=== PATIENT | male | born 1955 | race Caucasian/White ===

== ENCOUNTER 2022-09-28 10:13 | Day surgery (SDC) | payer OTHER, SELFPAY ==
--- NOTE | 2022-09-28 06:53 | W.PREOPHP ---
Assessment and Plan Assessment and plan (1) Nuclear sclerotic cataract of left eye: Status: Acute Assessment and plan: Assessment: Visually significant cataract of the left eye. Plan: Cataract extraction with lens implantation of the left eye. (2) Cortical cataract of left eye: Status: Acute Assessment and plan: Assessment: Visually significant cataract of the left eye. Plan: Cataract extraction with lens implantation of the left eye. History of Present Illness History of Present Illness Chief Complaint: Progressive decreased vision, left eye Narrative: The patient is a 67-year-old male with history of progressive decreased vision at both distance and near, left eye worse than right. He notes occasional monocular diplopia in the left eye. On examination he was noted to have visual acuity of 20/40 in the left eye in the presence of moderate nuclear and cortical cataract. He also has significant glare disability. The option of cataract surgery was offered to the patient and he wished to proceed. Review of Systems All systems reviewed & are unremarkable except as noted in HPI and below ENT Comments: Chronic sinusitis PFSH All Active Problems Nuclear sclerotic cataract of left eye (Acute) Cortical cataract of left eye (Acute) Medical History BPH (benign prostatic hyperplasia) Carpal tunnel syndrome Cervical radiculopathy Chronic sinusitis pt. states he has this for 6months + Depression Essential hypertension Hemorrhoids Hypothyroidism Overweight Pain in right knee Tinnitus Ventricular premature complex Pt. unaware of this, no hx per pt Surgical History (Updated 09/28/22 @ 10:56 by Marika Bowden) History of carpal tunnel release Hx of colonoscopy Hx of sinus surgery Social History Smoking/Tobacco Use Status: Former Tobacco Use Quit Date: 06/09/79 Smoking risk assessment performed?: Yes Alcohol Intake: former Drug use: Never Substance use type: does not use Do you feel safe at home: Yes Do you feel safe in your relationship?: Yes Meds Allergies and Home Medications Allergies Allergy/AdvReac Type Severity Reaction Status Date / Time No Known Allergies Allergy Unverified 09/28/22 10:49 Home Medications Medication Instructions Recorded Confirmed Type budesonide 0.5 mg/2 mL suspension 0.5 mg inhalation DIRECTED 09/24/22 09/28/22 History for nebulization finasteride 5 mg tablet 5 mg PO DAILY 09/24/22 09/28/22 History ibuprofen 800 mg tablet 800 mg PO BID PRN 09/24/22 09/28/22 History levothyroxine 125 mcg tablet 125 mcg PO DAILY 09/24/22 09/28/22 History lovastatin 40 mg tablet 40 mg PO DAILY 09/24/22 09/28/22 History mupirocin calcium 2 % topical cream 1 applic topical DIRECTED 09/24/22 09/28/22 History propranolol 120 mg capsule,24 240 mg PO BID 09/24/22 09/28/22 History hr,extended release sodium bicarbonate-sodium chloride 1 packet 09/24/22 History packet for sinus irrigation (Sinus Rinse packet) tamsulosin 0.4 mg capsule 0.8 mg PO HS 09/24/22 09/28/22 History venlafaxine 75 mg capsule,extended 150 mg PO DAILY 09/24/22 09/28/22 History release 24 hr verapamil 180 mg tablet,extended 180 mg PO DAILY 09/25/22 09/28/22 History release 24 hr Exam Eyes Other: Most recent ocular examination revealed corrected visual acuity of 20/25 OD, 20/40 OS. Extraocular motility is normal. Intraocular pressure is 11 OU. Slit-lamp examination reveals pupils dilating only to 4 mm OU. In the right eye there is a mild nuclear cataract. The left eye shows moderate nuclear and moderate cortical cataract. Disc cupping is 0.35 OU. The remainder of the fundus, vessels, macula, and peripheral retina and vitreous is normal. Resp Auscultation: clear to auscultation bilaterally Cardio Rate: regular rate Rhythm: regular rhythm
--- NOTE | 2022-09-28 10:57 | W.ANESPRE ---
General Info Date of Service Date Performed: 09/28/22 Height: 5 ft 6 in Weight: 79.832 kg Body Mass Index (BMI): 28.4 Surgical Procedure: Operation Date: 09/28/22 13:40 Proposed Procedure Side Surgeon p Cataract Extraction with IOL Implant Left Milan Delgadillo MD Meds Allergies and Home Medications Allergies Allergy/AdvReac Type Severity Reaction Status Date / Time No Known Allergies Allergy Unverified 09/28/22 10:49 Home Medication Medication Instructions Recorded budesonide 0.5 mg/2 mL suspension 0.5 mg inhalation DIRECTED 09/24/22 for nebulization finasteride 5 mg tablet 5 mg PO DAILY 09/24/22 ibuprofen 800 mg tablet 800 mg PO BID PRN 09/24/22 levothyroxine 125 mcg tablet 125 mcg PO DAILY 09/24/22 lovastatin 40 mg tablet 40 mg PO DAILY 09/24/22 mupirocin calcium 2 % topical cream 1 applic topical DIRECTED 09/24/22 propranolol 120 mg capsule,24 240 mg PO BID 09/24/22 hr,extended release sodium bicarbonate-sodium chloride 1 packet 09/24/22 packet for sinus irrigation (Sinus Rinse packet) tamsulosin 0.4 mg capsule 0.8 mg PO HS 09/24/22 venlafaxine 75 mg capsule,extended 150 mg PO DAILY 09/24/22 release 24 hr verapamil 180 mg tablet,extended 180 mg PO DAILY 09/25/22 release 24 hr Current Visit Medications: Current Medications Generic Name Dose Route Start Last Admin Trade Name Freq PRN Reason Stop Dose Admin Acetaminophen 1,000 mg 09/28/22 06:00 Acetaminophen 500 Mg Tab PO Q4H PRN PRN Miscellaneous Medication 0 ml 09/28/22 06:00 Tropicam./Phenyleph. (1/2.5%) 5 Ml Btl OS DIRECTED JULIAN Miscellaneous Medication 0 ml 09/28/22 06:00 Prednisolone 1%, Moxifloxacin 0.5%, Nepafenac 0.1% 5ml Btl OS DIRECTED JULIAN Tetracaine HCl 0 ml 09/28/22 06:00 Tetracaine 0.5% 4 Ml Btl OS DIRECTED [facility] PFSH Active Problems Active Problems: Problem Status Onset Code Nuclear sclerotic cataract of left eye H25.12 Cortical cataract of left eye H26.9 Medical History Medical History BPH (benign prostatic hyperplasia) Carpal tunnel syndrome Cervical radiculopathy Chronic sinusitis pt. states he has this for 6months + Depression Essential hypertension Hemorrhoids Hypothyroidism Overweight Pain in right knee Tinnitus Ventricular premature complex Pt. unaware of this, no hx per pt Surgical History Surgical History (Updated 09/28/22 @ 10:56 by Marika Bowden) History of carpal tunnel release Hx of colonoscopy Hx of sinus surgery Tobacco Smoking/Tobacco Use Status: Former Tobacco Use Alcohol Alcohol Intake: former Substance Use Substance use: Never Substance use type: does not use Vital Signs and Lab Results Vital Signs Most Recent Vital Signs in EMR: Temp Pulse Resp BP Pulse Ox 36.6 C 68 16 135/89 97 09/28/22 10:58 09/28/22 10:58 09/28/22 10:58 09/28/22 10:58 09/28/22 10:58 Lab Results Blood Type / Crossmatch: No Data to Display Complete Blood Count: No Data to Display Complete Metabolic Panel: No Data to Display Liver Function Panel: No Data to Display Coagulation Panel: No Data to Display Cardiac Panel: No Data to Display Arterial Blood Gas: No Data to Display Venous Blood Gas: No Data to Display Pancreas Panel: No Data to Display Thyroid Panel: No Data to Display Infectious Disease: No Data to Display Blood Cultures: No Data to Display Toxicology Panel: No Data to Display Anesthesia Assessment and Plan Anesthesia History Personal History: No History of Anesthesia Complications Family History: No Family History of Anesthesia Complications Exercise Tolerance Exercise Tolerance: Metabolic Equivalents>4 Cardiac & Pulmonary Exam Cardiac Exam: Normal S1/S2 Heart Sounds Pulmonary Exam: Clear Bilateral Breath Sounds Implantable Cardiac Device Does patient have a Pacemaker or an ICD?: No Airway Exam Known Difficult Airway: No Mallampati Class: 4 Mouth Opening: Narrow (< 3cm) Thyromental Distance: Greater than 3 cm Neck Range of Motion: Full ROM Neck Circumference: Normal Teeth Condition: Normal Dentition ASA Classification ASA Score: ASA 2 Emergency Case?: No NPO Status NPO Status: NPO Clears >2 hours, Solids >8 hours Anesthesia Plan Resuscitation Status: Full Code Anesthesia Technique: MAC Anesthesia Airway Planned: Natural Airway Monitors Used: Standard Monitors Preoperative Comments:: 67 yo male for cataract removal. Sig PMHx: HTN (verapamil, propranolol), cervical radiculopathy, hypothyroid (stable on hypothyroid), PVC, depression (venlafaxine), former smoker. Plan: would like MKO.
[2022-09-28 10:58] VITALS: BP 135/89; PULSE 68; RESP 16; TEMP 36.6; O2SAT 97
[2022-09-28 11:19] VITALS: BMI 28.4
[2022-09-28] MEDS: Tropicam./Phenyleph. (1/2.5%) 5 ML BTL OS ×3 (11:24→11:34)
[2022-09-28] MEDS: Tetracaine 0.5% 4 ML BTL OS (12:15)
[2022-09-28] MEDS: Balanced Salt Soln.-PLUS 500 ML BAG (12:16)
[2022-09-28] MEDS: Lidocaine 1% Pres-Free 5 ML VIAL (12:16)
[2022-09-28] MEDS: Lidocaine 2% Jelly 6 ML SYR (12:17)
[2022-09-28] MEDS: Duovisc Viscoelastic System EACH 1 EACH (12:18)
[2022-09-28] MEDS: Povidone-Iodine Ophth 30 ML BTL (12:18)
[2022-09-28 12:30] VITALS: BP 128/83; PULSE 74; RESP 16; TEMP 36.6; O2SAT 94
--- NOTE | 2022-09-28 12:31 | PDOC.DSDIS_ITS ---
Date of service: 09/28/22 Time of Service: 12:32 Discharge Plan Disposition Patient Disposition: Home Discharge Details Attending Provider: Milan Delgadillo Primary Care Provider: Danny Tucker [place] Meds and New Rx's Prescriptions: No Action venlafaxine 75 mg Capsule,Extended Release 24hr 150 mg PO DAILY ibuprofen 800 mg Tablet 800 mg PO BID PRN lovastatin 40 mg Tablet 40 mg PO DAILY tamsulosin 0.4 mg Capsule 0.8 mg PO HS levothyroxine 125 mcg Tablet 125 mcg PO DAILY mupirocin calcium 2 % Cream 1 applic TOPICAL DIRECTED budesonide 0.5 mg/2 mL Suspension For Nebulization 0.5 mg inhalation DIRECTED propranolol 120 mg Capsule,Extended Release 24 Hr 240 mg PO BID finasteride 5 mg Tablet 5 mg PO DAILY Sinus Rinse Packet 1 packet verapamil 180 mg Tablet Extended Release 24hr 180 mg PO DAILY Discharge Instructions Stand Alone Forms: Post-op Topical Cataract, Press Ganey (DSU) Discharge Orders Discharge Orders: Discharge Order (Routine); Ordered 09/28/22 Ordered By: Milan Delgadillo DS: Diagnosis Discharge Diagnosis (1) Nuclear sclerotic cataract of left eye: Status: Resolved (2) Cortical cataract of left eye: Status: Resolved
--- NOTE | 2022-09-28 12:32 | ROE_ITS ---
Date of service: 09/28/22 Time of Service: 12:32 Operative Note Operative Note DATE OF PROCEDURE: 09/28/22 PRE-OP DIAGNOSIS: Nuclear/posterior subcapsular cataract, left eye Poorly dilating pupil, left eye POST-OP DIAGNOSIS: same PROCEDURE: Cataract extraction using phacoemulsification with intraocular lens implant, left eye Pupillary dilation and iris stabilization with 7.0 mm pupil expansion device. SURGEON: Milan Delgadillo ANESTHESIA TYPE: Local By Surgeon and MAC Refer to Anesthesia Record PATHOLOGY: none sent COMPLICATIONS: None Patient was transported to: same day Patient's condition: stable Implants: Hardik and Hardik Tecnis Eyhance [id number] Indications: Progressive decreased vision due to cataract, left eye Procedure Description: CATARACT SURGERY OPERATIVE REPORT PREOPERATIVE DIAGNOSIS: 1. Nuclear/cortical cataract, left eye 2. Poorly dilating pupil, left eye POSTOPERATIVE DIAGNOSIS: Same OPERATION: 1. Cataract extraction using phacoemulsification with posterior chamber intraocular lens implant, left eye. 2. Very dilation and iris stabilization with 7.0 mm pupillary expansion device IOL: IOL Link And Link Knitting Machine Operator/Model: Hardik & Hardik Tecnis Eyhance DIB00 IOL Power: + 22.0 diopters IOL Serial Number: [id number] Optic Diameter: 6.0 mm Haptic/Overall Diameter: 13.0 mm PHACO INFO: Mohit [employer] Vision System with OZil and Active [employer]uidics Cumulative Dispersed Energy (CDE): 4.08 seconds SURGEON: Milan Delgadillo MD, CINDY ANESTHESIA: Monitored A [facility] (MAC), with local sub-tenon's anesthetic infiltration COMPLICATIONS: None SPECIMENS: None INDICATIONS FOR PROCEDURE: The patient is a 67-year-old gentleman with history of diminished visual acuity in his left eye secondary to the development of nuclear/cortical cataract. He is significantly symptomatic that he desires cataract surgery and attempt to improve and maximize his vision. The option of cataract surgery was offered to the patient and he wished to proceed. PROCEDURE: The correct surgical eye was identified and marked as the left eye and the pupil was dilated in the preoperative area using mydriatics and cycloplegics. The dilated pupil size was [] mm. Oral sedation was administered in the form of an Imprimis MKO Melt (midazolam 3mg/ketamine 25mg/ondansetron 2mg). The patient was brought to the operating room where cardiopulmonary monitoring was instituted and surgical time-out was performed, confirming the correct operative eye and IOL power. Topical anesthesia was administered and ophthalmic povidone-iodine 5% was instilled into the conjunctival fornices. Lidocaine gel was applied to the cornea and the jared-ocular area was prepped with Betadine 10% solution and draped in the usual sterile fashion for intraocular surgery, including an aperture drape. A Tegaderm transparent film dressing was cut in half and used to cover the lashes and lid margins. Care was taken to sequester the lashes and lid margins under the Tegaderm dressing. A lid speculum was placed between the lids of the operative eye and the Mohit LuxOR Revalia operating microscope was maneuvered into position. Amina scissors were then used to make a conjunctival buttonhole approximately 6mm posterior to the limbus in the inferonasal quadrant. Blunt dissection was carried out to expose bare sclera, and a blunt-tipped sub-tenon?s anesthesia cannula was introduced and passed posteriorly along the globe where non- preserved plain lidocaine was injected into posterior sub-Tenon?s space. A sideport knife was used to make a paracentesis port superiorly/superiortemporally. Intraocular phenylephrine/lidocaine was injected int the anterior chamber.. The anterior chamber was filled with viscoelastic. A keratome knife was used to construct a 2-plane near-clear corneal tunnel extending 2.0mm into clear cornea temporally. A 7.0 mm pupillary expansion device was inserted into the pupillary space and engaged with a Kuglen hook. A flap was raised on the anterior capsule and capsulorhexis forceps were used to complete a continuous curvilinear capsulorhexis of 5.5 mm. Balanced salt solution was then used to perform cortical cleaving hydrodissection and nuclear hydrodelineation until the lens could be freely rotated within the capsular bag. The lens nucleus was then disassembled and removed within the capsular bag and iris plane using phacoemulsification. Residual cortical material was removed using the 45-degree angled silicone I/A tip with 0.3mm port. The posterior capsule was carefully polished to remove as much residual lens epithelial cells as safely possible. The capsular bag was then inflated and the anterior chamber deepened with viscoelastic. The lens implant described above was inserted into the capsular bag using the Hardik and Hardik Simplicity pre-loaded injector. . A Kuglen hook was used to dial the IOL into position. The pupil expansion device was then removed in the reverse order of its insertion. Residual viscoelastic was then removed first from posterior to the IOL, then from the anterior chamber using the I/A handpiece. The lens implant was noted to center nicely within the capsular bag. The incisions were stromally hydrated, and the anterior chamber was reformed using BSS. Then 0.5cc of moxifloxacin 1.0mg/ml were injected into the capsular bag and anterior chamber. The incisions were checked with a Weck spear and found to be secure. Several drops of ophthalmic povidone-iodine 5% were then applied to the eye followed by two drops of Imprimis combination prednisolone/moxifloxacin/nepafenac solution. The drapes were removed and a clear plastic protective eye shield was placed over the eye. The patient was then returned to Same Day Surgery in stable condition.
--- NOTE | 2022-09-28 12:45 | W.ANESPOSTOP ---
Postoperative Evaluation Date, Time and Location Date Performed: 09/28/22 Time Performed: 12:45 Patient Location: Day Surgery Unit Vital Signs Most Recent Imported Vital Signs: Most Recent Vital Signs Temp Pulse Resp BP Pulse Ox 36.6 C 74 16 128/83 94 09/28/22 12:30 09/28/22 12:30 09/28/22 12:30 09/28/22 12:30 09/28/22 12:30 Pain Score Most Recent Pain Score: Most Recent Pain Score Pain Level 0 09/28/22 12:30 Assessment Mental Status: Awake (Alert & Oriented to Patient Baseline) Airway and Respiratory Function: Patent airway with normal (patient baseline) respiratory exam Cardiovascular Function: Hemodynamically Stable Hydration Status: Adequately Hydrated Nausea & Vomiting: No Nausea or Vomiting Pain: Pt. Denies Any Pain Peripheral Nerve Block: Patient did not receive a nerve block Postoperative Comments:: VSS, not coming over in [employer].
[2022-09-28 12:53] VITALS: BP 123/77; PULSE 72; RESP 16; TEMP 37; O2SAT 97
== END 2022-09-28 13:00 | disposition home or self-care (01) ==
LOC: SUR 10:14
PROVIDERS: PCP Internal Medicine; Visit Provider Ophthalmology
PROC: (CPT 66982; principal; 2022-09-28 13:30)
DX: H25.12 Age-related nuclear cataract, left eye (principal); H57.03 Miosis
CPT/HCPCS: 66982; V2632